=== PATIENT | female | born 1940 | race African-American/Black ===

== ENCOUNTER 2024-01-15 09:46 | Emergency (ER) | payer OTHER ==
[2024-01-15 10:07] VITALS: TEMP 97.4; BMI 22.6
[2024-01-16 00:27] VITALS: PULSE 84; RESP 16
[2024-01-16] MEDS ORDERED: amLODIPine BESYLATE 5 MG TABLET (FP) ONE (00:37)
[2024-01-16] MEDS: amLODIPine BESYLATE 5 MG TABLET (FP) PO ONE (00:40)
[2024-01-16 01:40] VITALS: BP 153/101
== END 2024-01-16 01:54 | disposition home or self-care (01) ==
LOC: JER 09:46
PROC: 2W3CX1Z Immobilization of Right Lower Arm using Splint (ICD-10-PCS; principal; 2024-01-15)
DX: S62.306A Unspecified fracture of fifth metacarpal bone, right hand, initial encounter for closed fracture (principal); W22.8XXA Striking against or struck by other objects, initial encounter
CPT/HCPCS: 99283-25

== ENCOUNTER 2024-02-04 15:36 | Inpatient (IN) | payer OTHER ==
[2024-02-04 17:43] LABS: BASO % 0.3 % (0-2.0); EOS % 4.8 % (0-4.5); HEMATOCRIT 36.1 % (32.4-45.2); HEMOGLOBIN 12.2 GM/dL (10.7-15.3); LYMPH % 30.5 % (8-40); MCH 31.2 pg (25.7-33.7); MCHC 33.7 g/dl (32.0-36.0); MEAN CELL VOLUME 92.4 fl (80-96); MEAN PLT VOLUME 6.6 fl (7.5-11.1); MONO % 11.1 % (3.8-10.2); NEUT % 53.3 % (42.8-82.8); PLATELET COUNT 397 10^3/uL (134-434); RBC 3.91 M/mm3 (3.60-5.2); RDW 14.2 % (11.6-15.6); WHITE BLOOD COUNT 6.8 K/mm3 (4.0-10.0)
[2024-02-04 17:50] LABS: INR 1.03 (0.83-1.09); PROTHROMBIN TIME (PATIENT) 11.6 SEC (9.7-13.0)
[2024-02-04 17:53] LABS: ACTIVATED PTT 32.9 SECONDS (25.2-36.5)
[2024-02-04 18:08] LABS: CHLORIDE 107 mmol/L (98-107); POTASSIUM 4.5 mmol/L (3.5-5.1); SODIUM 139 mmol/L (136-145)
[2024-02-04 18:11] LABS: ALBUMIN 3.4 g/dl (3.4-5.0); ANION GAP 1 mmol/L (4-13); BLOOD UREA NITROGEN 19.8 mg/dL (7-18); CO2 32 mmol/L (21-32); GLUCOSE,RANDOM 97 mg/dL (74-106)
[2024-02-04 18:14] LABS: CREATININE 0.8 mg/dL (0.55-1.3); SGOT/AST 18 U/L (15-37); SGPT/ALT 27 U/L (13-61)
[2024-02-04 18:16] LABS: BILIRUBIN,TOTAL 0.2 mg/dL (0.2-1); TOT PROT 6.7 g/dl (6.4-8.2)
[2024-02-04 18:17] LABS: ALK PHOS 117 U/L (45-117)
[2024-02-04] MEDS ORDERED: CEFTRIAXONE 1 GM/50 ML BAG ONE (18:17)
[2024-02-04] MEDS: VANCOMYCIN 1,000 MG in DEXTROSE 5%-WATER - 250 ML IVPB ONE (18:27)
[2024-02-04 18:30] LABS: ERYTHROCYTE SEDIMENTATION RATE 25 mm/hr (0-30)
[2024-02-04 18:35] LABS: EPI CELLS >36 /uL (0-25.1); HYALINE CASTS 2 /uL (0-3.1); PH,URINE 6.5 (5.0-8.0); URINE APPEARANCE CLEAR; URINE BACTERIA 147 /uL (0-1359); URINE BILIRUBIN NEGATIVE (NEGATIVE); URINE COLOR YELLOW; URINE GLUCOSE (UA) NEGATIVE (NEGATIVE); URINE KETONE NEGATIVE (NEGATIVE); URINE LEUK ESTERASE NEGATIVE (NEGATIVE); URINE NITRITE NEGATIVE (NEGATIVE); URINE PROTEIN NEGATIVE (NEGATIVE); URINE RBC 117 /uL (0-23.9); URINE WBC 42 /uL (0-25.8)
[2024-02-04] MEDS: CEFTRIAXONE 1,000 MG in DEXTROSE 5%-WATER - 50 ML IVPB ONE (20:02)
[2024-02-04] MEDS ORDERED: VANCOMYCIN 1,000 MG in DEXTROSE 5%-WATER - 250 ML IVPB SCH (20:45)
[2024-02-04] MEDS: SODIUM CHLORIDE 500 ML IV STA (20:58)
[2024-02-05 04:46] VITALS: BMI 20.5
[2024-02-05 09:32] LABS: HEMATOCRIT 37.3 % (32.4-45.2); HEMOGLOBIN 12.5 GM/dL (10.7-15.3); MCH 31.2 pg (25.7-33.7); MCHC 33.5 g/dl (32.0-36.0); MEAN CELL VOLUME 93.1 fl (80-96); MEAN PLT VOLUME 6.8 fl (7.5-11.1); PLATELET COUNT 357 10^3/uL (134-434); RDW 14.1 % (11.6-15.6); WHITE BLOOD COUNT 5.5 K/mm3 (4.0-10.0)
[2024-02-05 09:35] LABS: INR 1.05 (0.83-1.09); PROTHROMBIN TIME (PATIENT) 11.8 SEC (9.7-13.0)
[2024-02-05 09:48] LABS: POTASSIUM 4.2 mmol/L (3.5-5.1)
[2024-02-05] MEDS ORDERED: ALBUTEROL SO4 2.5/IPRATROPIUM 0.5 INH SOL 3 ML VIAL.NEB. NEB PRN (10:09)
[2024-02-05 10:10] LABS: ALBUMIN 3.4 g/dl (3.4-5.0); BLOOD UREA NITROGEN 13.7 mg/dL (7-18); CALCIUM 9.1 mg/dL (8.5-10.1); MAGNESIUM 2.4 mg/dL (1.8-2.4)
[2024-02-05] MEDS ORDERED: ACETAMINOPHEN 325 MG TABLET (FP) PO PRN (10:10)
[2024-02-05 10:13] LABS: BILIRUBIN,TOTAL 0.3 mg/dL (0.2-1); PHOSPHOROUS 3.9 mg/dL (2.5-4.9); TOT PROT 6.8 g/dl (6.4-8.2)
[2024-02-05 10:14] LABS: CREATININE 0.6 mg/dL (0.55-1.3)
[2024-02-05] MEDS ORDERED: DONEPEZIL HCL 10 MG TABLET (FP) PO SCH (10:15)
[2024-02-05] MEDS: CEFTRIAXONE 1 GM in DEXTROSE 5%-WATER - 50 ML IVPB SCH (11:14)
[2024-02-05] MEDS: ENOXAPARIN NA (PORCINE) 40 MG/0.4 ML DISP.SYRIN SQ SCH (11:14)
[2024-02-05] MEDS: MEMANTINE HCL 10 MG TABLET (FP) PO SCH (11:15)
[2024-02-05] MEDS: BUDESONIDE/FORMETEROL FUMARATE 80/4.5 mcg INHALER IH SCH (11:15)
[2024-02-05] MEDS: VANCOMYCIN 1,000 MG in DEXTROSE 5%-WATER - 250 ML IVPB SCH (12:36)
[2024-02-05] MEDS ORDERED: VANCOMYCIN 1,000 MG in DEXTROSE 5%-WATER - 250 ML IVPB SCH (18:00)
[2024-02-05] MEDS: MIRTAZAPINE 15 MG TABLET (FP) PO SCH (21:24)
[2024-02-05] MEDS: QUEtiapine FUMARATE 25 MG TABLET PO SCH (21:24)
[2024-02-05] MEDS: DONEPEZIL HCL 10 MG TABLET (FP) PO SCH (21:24)
[2024-02-05] MEDS: SENNOSIDES 8.8 MG/5 ML SYRUP PO SCH (21:24)
[2024-02-08] MEDS ORDERED: LORazepam 2 MG/ML SDV VIAL IVPUSH ONE (11:00)
[2024-02-10 08:39] LABS: BASO % 0.4 % (0-2.0); EOS % 2.8 % (0-4.5); HEMATOCRIT 36.6 % (32.4-45.2); HEMOGLOBIN 12.1 GM/dL (10.7-15.3); LYMPH % 16.2 % (8-40); MCH 30.9 pg (25.7-33.7); MCHC 33.1 g/dl (32.0-36.0); MEAN CELL VOLUME 93.4 fl (80-96); MEAN PLT VOLUME 7.2 fl (7.5-11.1); MONO % 14.9 % (3.8-10.2); NEUT % 65.7 % (42.8-82.8); PLATELET COUNT 295 10^3/uL (134-434); RBC 3.92 M/mm3 (3.60-5.2); RDW 13.9 % (11.6-15.6); WHITE BLOOD COUNT 8.4 K/mm3 (4.0-10.0)
[2024-02-10 08:40] LABS: POTASSIUM 4.1 mmol/L (3.5-5.1)
[2024-02-10 08:44] LABS: BLOOD UREA NITROGEN 15.1 mg/dL (7-18)
[2024-02-10 08:47] LABS: CREATININE 0.7 mg/dL (0.55-1.3)
[2024-02-10] MEDS ORDERED: LORazepam 2 MG/ML SDV VIAL IVPUSH ONE (16:30)
[2024-02-11 19:42] VITALS: RESP 18
[2024-02-12 15:24] VITALS: BP 129/67; PULSE 81; TEMP 98.1
== END 2024-02-12 18:31 | DRG 593 ==
LOC: JER 15:36 → JERBED 18:56 → OBSVTOIN 20:30 → J5S 02-05 00:43
PROVIDERS: ADMIT Student in an Organized Health Care Education/Training Program; ATTEND Internal Medicine
DX: L97.518 Non-pressure chronic ulcer of other part of right foot with other specified severity (principal); E44.0 Moderate protein-calorie malnutrition; F03.918 Unspecified dementia, unspecified severity, with other behavioral disturbance; J44.9 Chronic obstructive pulmonary disease, unspecified; K21.9 Gastro-esophageal reflux disease without esophagitis; E78.5 Hyperlipidemia, unspecified; E03.9 Hypothyroidism, unspecified; Z68.20 Body mass index [BMI] 20.0-20.9, adult
CPT/HCPCS: 36415; 71045-TC-FY; 73630-TC-LT; 73630-TC-RT-FY; 73721-LT-TC; 78315-TC; 80048; 80053; 81003; 83735; 84100; 85025; 85027; 85610; 85651; 85730; 86140; 86850; 86900; 86901; 87040; 87086; 87635; 93005; 93010; 97116-GP; 97161-GP; 99285-25; A9503; G0378

== ENCOUNTER 2024-03-03 06:29 | Inpatient (IN) | payer OTHER ==
[2024-03-03] MEDS ORDERED: ALBUTEROL SO4 2.5/IPRATROPIUM 0.5 INH SOL 3 ML VIAL.NEB. NEB ONE ×2 (06:39→06:41)
[2024-03-03 06:44] VITALS: BMI 17.7
[2024-03-03] MEDS: ALBUTEROL SO4 2.5/IPRATROPIUM 0.5 INH SOL 3 ML VIAL.NEB. NEB ONE (06:44)
[2024-03-03] MEDS ORDERED: MAGNESIUM SULFATE IN WATER 2 GM/50 ML IVPB IVPB ONE (06:48)
[2024-03-03] MEDS ORDERED: methylPREDNISolone NA SUCC 125 MG/2 ML VIAL ONE (06:48)
[2024-03-03] MEDS: methylPREDNISolone NA SUCC 125 MG/2 ML VIAL IVPB ONE (06:54)
[2024-03-03] MEDS: MAGNESIUM SULF 50% (8.12 MEQ/2 ML-1 GM VIAL) IVPB ONE (06:56)
[2024-03-03 07:15] LABS: BASO % 0.1 % (0-2.0); EOS % 0.5 % (0-4.5); HEMATOCRIT 35.9 % (32.4-45.2); HEMOGLOBIN 11.7 GM/dL (10.7-15.3); LYMPH % 9.9 % (8-40); MCH 30.9 pg (25.7-33.7); MCHC 32.7 g/dl (32.0-36.0); MEAN CELL VOLUME 94.7 fl (80-96); MEAN PLT VOLUME 6.9 fl (7.5-11.1); MONO % 6.6 % (3.8-10.2); NEUT % 82.9 % (42.8-82.8); PLATELET COUNT 382 10^3/uL (134-434); RBC 3.79 M/mm3 (3.60-5.2); RDW 14.5 % (11.6-15.6); WHITE BLOOD COUNT 9.3 K/mm3 (4.0-10.0)
[2024-03-03] MEDS ORDERED: ALBUTEROL SO4 0.083% IH SOL 2.5 MG/3 ML VIAL.NEB. NEB ONE ×2 (07:16→09:47)
[2024-03-03 07:50] LABS: BLOOD UREA NITROGEN 12.6 mg/dL (7-18); CALCIUM 9.2 mg/dL (8.5-10.1)
[2024-03-03 07:57] LABS: ALBUMIN 3.5 g/dl (3.4-5.0); BILIRUBIN,TOTAL 0.4 mg/dL (0.2-1); CREATININE 0.6 mg/dL (0.55-1.3); POTASSIUM 4.6 mmol/L (3.5-5.1); TOT PROT 7.6 g/dl (6.4-8.2)
[2024-03-03 08:04] LABS: ARTERIAL BLD GAS O2 SATURATION 99.3 % (95-98); ARTERIAL BLOOD GAS BASE EXCESS -1.1 mmol/L (-2-2); ARTERIAL BLOOD GAS PO2 234.6 mmHg (80-100); ARTERIAL BLOOD GAS pH 7.226 (7.350-7.450)
[2024-03-03] MEDS: ALBUTEROL SO4 0.083% IH SOL 2.5 MG/3 ML VIAL.NEB. NEB ONE (10:02)
[2024-03-03] MEDS ORDERED: hydrALAZINE HCL 20 MG/ML VIAL ONE (11:21)
[2024-03-03] MEDS: hydrALAZINE HCL 20 MG/ML VIAL IVPUSH ONE (11:26)
[2024-03-03] MEDS ORDERED: ACETAMINOPHEN 325 MG TABLET (FP) PO PRN (11:58)
[2024-03-03] MEDS ORDERED: ALBUTEROL SO4 2.5/IPRATROPIUM 0.5 INH SOL 3 ML VIAL.NEB. NEB PRN (11:58)
[2024-03-03] MEDS: ALBUTEROL SO4 2.5/IPRATROPIUM 0.5 INH SOL 3 ML VIAL.NEB. NEB SCH (12:00)
[2024-03-03] MEDS: methylPREDNISolone NA SUCC 40 MG/1 ML VIAL IVPB SCH (14:05)
[2024-03-03] MEDS: methylPREDNISolone NA SUCC 40 MG/1 ML VIAL IVPUSH SCH (15:03)
[2024-03-03] MEDS: DONEPEZIL HCL 10 MG TABLET (FP) PO SCH (22:13)
[2024-03-03] MEDS: MEMANTINE HCL 10 MG TABLET (FP) PO SCH (22:13)
[2024-03-04] MEDS: PANTOPRAZOLE SODIUM 40 MG VIAL IVPUSH SCH (05:47)
[2024-03-04] MEDS: ENOXAPARIN NA (PORCINE) 40 MG/0.4 ML DISP.SYRIN SQ SCH (10:14)
[2024-03-04 10:36] LABS: HEMATOCRIT 37.1 % (32.4-45.2); HEMOGLOBIN 12.1 GM/dL (10.7-15.3); LYMPH % 7.3 % (8-40); MCH 30.5 pg (25.7-33.7); MCHC 32.8 g/dl (32.0-36.0); MEAN CELL VOLUME 93.2 fl (80-96); MEAN PLT VOLUME 6.9 fl (7.5-11.1); MONO % 5.1 % (3.8-10.2); NEUT % 87.6 % (42.8-82.8); PLATELET COUNT 376 10^3/uL (134-434); RBC 3.98 M/mm3 (3.60-5.2); RDW 14.1 % (11.6-15.6); WHITE BLOOD COUNT 6.7 K/mm3 (4.0-10.0)
[2024-03-04 10:55] LABS: POTASSIUM 4.6 mmol/L (3.5-5.1)
[2024-03-04] MEDS: amLODIPine BESYLATE 5 MG TABLET (FP) PO ONE (11:00)
[2024-03-04 11:02] LABS: CALCIUM 9.5 mg/dL (8.5-10.1)
[2024-03-04 11:03] LABS: ALBUMIN 3.5 g/dl (3.4-5.0); BLOOD UREA NITROGEN 19.2 mg/dL (7-18)
[2024-03-04 11:06] LABS: BILIRUBIN,TOTAL 0.3 mg/dL (0.2-1); CREATININE 0.6 mg/dL (0.55-1.3); TOT PROT 7.4 g/dl (6.4-8.2)
[2024-03-04] MEDS: methylPREDNISolone NA SUCC 40 MG/1 ML VIAL IVPUSH SCH (22:19)
[2024-03-05] MEDS: amLODIPine BESYLATE 5 MG TABLET (FP) PO SCH (10:52)
[2024-03-05] MEDS: AZITHROMYCIN IVPB 500 MG/250 ML BAG IVPB SCH (12:10)
[2024-03-05] MEDS: QUEtiapine FUMARATE 25 MG TABLET PO SCH (22:02)
[2024-03-06] MEDS: amLODIPine BESYLATE 5 MG TABLET (FP) PO SCH (09:27)
[2024-03-06] MEDS: methylPREDNISolone NA SUCC 40 MG/1 ML VIAL IVPUSH SCH (21:45)
[2024-03-08] MEDS: methylPREDNISolone NA SUCC 40 MG/1 ML VIAL IVPUSH SCH (21:54)
[2024-03-08 22:07] VITALS: RESP 20
[2024-03-09] MEDS: PANTOPRAZOLE 40 MG TABLET PO SCH (09:51)
[2024-03-09 15:47] VITALS: BP 137/64; PULSE 89; TEMP 98.8
== END 2024-03-09 17:25 | DRG 189 ==
LOC: JER 06:29 → JERBED 11:03 → J5S 13:02
PROVIDERS: ADMIT Internal Medicine; ATTEND Internal Medicine
DX: J96.01 Acute respiratory failure with hypoxia (principal); E44.0 Moderate protein-calorie malnutrition; J44.1 Chronic obstructive pulmonary disease with (acute) exacerbation; Z68.1 Body mass index [BMI] 19.9 or less, adult; F03.90 Unspecified dementia, unspecified severity, without behavioral disturbance, psychotic disturbance, mood disturbance, and anxiety; M41.9 Scoliosis, unspecified; J98.4 Other disorders of lung; I25.10 Atherosclerotic heart disease of native coronary artery without angina pectoris; K21.9 Gastro-esophageal reflux disease without esophagitis; I50.9 Heart failure, unspecified; I11.0 Hypertensive heart disease with heart failure; J96.02 Acute respiratory failure with hypercapnia
CPT/HCPCS: 0241U-QW; 36415; 36600; 71045-TC-FY; 80053; 82803; 82962; 83605; 83880; 84484; 85025; 87040; 87635; 93005; 93010; 94640; 94660; 99285-25